=== PATIENT | male | born 1965 | race Caucasian/White ===

== ENCOUNTER 2022-12-02 16:59 | Emergency (ER) | payer BC, SELFPAY ==
[2022-12-02 17:17] VITALS: BP 130/91; PULSE 95; RESP 18; TEMP 36.2; O2SAT 98
--- NOTE | 2022-12-02 18:01 | ED.SKABFB ---
HPI - Skin/Abscess/Foreign Bdy General Chief complaint: Skin/Abscess/Foreign Body Stated complaint: Insect Bite Lt Calf,Rash Time Seen by Provider: 12/02/22 17:13 Source: patient and RN notes reviewed Mode of arrival: ambulatory Limitations: no limitations History of Present Illness HPI narrative: Patient presents today complaining that he was stung by a bee to the left calf approximately 1.5 hours prior to arrival. States he did have some transient swelling sensation to his tongue that has since resolved. He did develop some rash to the posterior bilateral shoulders when he subsequently when out to mow after the sting. Denies shortness of breath, swelling to the lips or face, scratchiness to the throat. He has not tried any [id number] treatment prior to arrival. No known allergic reaction to bees in the past. Related Data Home Medications Medication Instructions Recorded Confirmed cetirizine 10 mg tablet (Zyrtec) 10 mg PO DAILY 12/02/22 12/02/22 Allergies Allergy/AdvReac Type Severity Reaction Status Date / Time bee venom protein (honey bee) Allergy Severe Swelling Verified 12/02/22 18:41 [bees] of Lip/Tongue/Throat Review of Systems Review of Systems: CONSTITUTIONAL: Denies body aches, fever, chills, or sweats. EYES: Denies visual changes, redness, or discharge. ENT: Denies rhinorrhea, congestion, sore throat, or otalgia.+ tongue swelling-resolved CARDIOVASCULAR: Denies chest pain, palpitations, or edema. RESPIRATORY: Denies cough or dyspnea. GASTROINTESTINAL: Denies abdominal pain, nausea, vomiting, or diarrhea. GENITOURINARY: Denies dysuria or hematuria. SKIN: + bee sting, rash MUSCULOSKELETAL: Denies back pain, joint pain, or myalgia. NEUROLOGIC: Denies headache, numbness, tingling, or weakness. PSYCH: Denies depression or anxiety. PMFSH Comments At time of signature, I have reviewed and agree with nursing past medical, surgical, social and family history unless otherwise noted. Please see nursing chart for further information. There is no relevant family history pertinent to the presenting complaint Exam Narrative: GENERAL: Well-appearing, well-nourished, and in no acute distress. HEAD: Normocephalic, atraumatic. EYES: EOMI. No redness or drainage. Conjunctivae normal. ENT: Mucous membranes pink and moist. Nares clear. No rhinorrhea. Throat normal. Uvula midline. Tongue appears normal. NECK: Normal AROM. Supple. No lymphadenopathy. CHEST: No respiratory distress. Clear to auscultation. HEART: Regular rate and rhythm. No murmur appreciated. Normal peripheral pulses. EXTREMITIES: Normal range of motion. No edema. SKIN: Warm, dry. Capillary refill normal. Normal skin turgor. Flesh-colored urticarial rash widespread to the posterior bilateral shoulders. No rash to the remainder of the body. 5 cm ring around a puncture wound to the left calf. No induration. No swelling to the calf. NEURO: No focal deficits. Alert and oriented x3. Gait steady. PSYCH: Normal affect. No signs of depression or anxiety. Course Course Level of Care: Express Care Visit Vital Signs Vital signs: Vital Signs Temperature 97.1 F L 12/02/22 17:17 Pulse Rate 95 12/02/22 17:17 Respiratory Rate 18 12/02/22 17:17 Blood Pressure 130/91 H 12/02/22 17:17 Pulse Oximetry 98 12/02/22 17:17 Oxygen Delivery Room Air 12/02/22 17:17 Temperature 97.1 F L 12/02/22 17:17 Pulse Rate 95 12/02/22 17:17 Respiratory Rate 18 12/02/22 17:17 Blood Pressure 130/91 H 12/02/22 17:17 Pulse Oximetry 98 12/02/22 17:17 Oxygen Delivery Room Air 12/02/22 17:17 Reviewed. Pt has been instructed to follow up with his PCP regarding his elevated blood pressure today. MDM - Skin/Abscess/Foreign Bdy MDM Narrative Medical decision making narrative: Benadryl and prednisone given to patient. Patient declines IM medications, but will take p.o.. He does have a ride home. Discussed cathleen
[2022-12-02] MEDS: predniSONE 20 MG TABLET 60 MG PO (18:04)
[2022-12-02] MEDS: diphenhydrAMINE HCl CAP 25 MG CAPSULE 50 MG PO (18:04)
== END 2022-12-02 18:16 | disposition home or self-care (01) ==
PROVIDERS: Emergency Provider Nurse Practitioner
DX: T63.441A Toxic effect of venom of bees, accidental (unintentional), initial encounter (principal)
CPT/HCPCS: 99203; A9270; G0463; J7512